=== PATIENT | female | born 1985 | race Two or more races ===

== ENCOUNTER 2018-10-03 08:09 | Day surgery (SDC) | payer MEDICAID ==
[2018-09-26 10:52] LABS: APPEARANCE,URINE CLEAR; BILIRUBIN,URINE NEGATIVE (NEGATIVE); COLOR,URINE STRAW; GLUCOSE, URINE NEGATIVE (NEGATIVE); KETONES,URINE NEGATIVE (NEGATIVE); LEUKOCYTE ESTERASE,URINE NEGATIVE (NEGATIVE); NITRITE,URINE NEGATIVE (NEGATIVE); PROTEIN,URINE NEGATIVE (NEGATIVE); URINE SPECIFIC GRAVITY 1.008; UROBILINOGEN,URINE NEGATIVE mg/dL (<2.0)
[2018-09-26 10:52] LABS: HEMOGLOBIN 15.5 g/dL (12.0-15.5); MEAN CORPUSCULAR HEMOGLOBIN 30.4 pg (27.0-33.4); MEAN CORPUSCULAR HGB CONC 34.3 g/dL (32.0-36.0); MEAN CORPUSCULAR VOLUME 89 fl (80-97); PLATELET COUNT 230 10^3/uL (150-450); RED BLOOD COUNT 5.08 10^6/uL (3.72-5.28); RED CELL DISTRIBUTION WIDTH 12.5 % (11.5-14.0); WHITE BLOOD COUNT 7.1 10^3/uL (4.0-10.5)
--- NOTE | 2018-09-26 12:19 | EKG REPORT ---
SEVERITY:- NORMAL ECG - SINUS RHYTHM : Confirmed by: Markel Dumont MD 26-Sep-2018 12:18:51
[~2018-10-03 08:09] MED LIST: LACTATED RINGERS 1000 ML IV PRN; LIDOCAINE 0.5% INJ-PF (5 MG/ML) 50 ML SDV SUBCUT PRN
[2018-10-03] MEDS ORDERED: FENTANYL CITRATE INJ/PF 100 MCG/2 ML AMPUL ONE (09:10)
[2018-10-03] MEDS ORDERED: MIDAZOLAM 2 MG/2 ML INJ ONE (09:10)
[2018-10-03] MEDS ORDERED: PROPOFOL INJ 200 MG/20 ML VIAL IV ONE (09:10)
[2018-10-03] MEDS ORDERED: DIPHENHYDRAMINE HCL 50 MG/ML VIAL IV PRN (10:05)
[2018-10-03] MEDS ORDERED: PROMETHAZINE HCL INJ 25 MG/1 ML VIAL IV PRN (10:05)
[2018-10-03] MEDS ORDERED: MORPHINE SULFATE 10 MG/ML INJ IV PRN (10:05)
[2018-10-03] MEDS ORDERED: FENTANYL CITRATE INJ/PF 100 MCG/2 ML AMPUL IV PRN ×3 (10:05)
[2018-10-03] MEDS ORDERED: MEPERIDINE HCL/PF INJ 25 MG/1 ML DISP.SYRIN IV PRN (10:05)
[2018-10-03] MEDS ORDERED: OXYCODONE-ACETAMINOPHEN 5-325 MG TABLET PO PRN ×3 (10:05→11:59)
--- NOTE | 2018-10-03 11:10 | OPERATIVE REPORT E ---
Operative Report NAME: CLAUDIA ARTEAGA : 1985 AGE: 33Y DATE OF SURGERY: 10/03/2018 ROOM: PREOPERATIVE DIAGNOSIS: CYSTOCELE, RECTOCELE, PELVIC ORGAN PROLAPSE. POSTOPERATIVE DIAGNOSIS: CYSTOCELE, RECTOCELE, PELVIC ORGAN PROLAPSE. OPERATION: Anterior and posterior repair with sacrospinous vaginal suspension. SURGEON: Neville CARBAJAL M.D. ESTIMATED BLOOD LOSS: Less than 50 mL. ANESTHESIA: General. TISSUE REMOVED OR ALTERED: None. PROCEDURE: Patient was placed in a dorsal lithotomy position and prepped and draped in usual sterile fashion. The vaginal mucosa was grasped a centimeter below the urethra and entered with sharp dissection and divided to the cervix. Underlying vesicovaginal tissue was bluntly and sharply divided. The underlying tissue was then plicated with multiple 2-0 Vicryl in the midline and excess vaginal mucosa was sharply excised and the defect closed with running suture of 2-0 Vicryl. Posterior repair was done by grasping the vaginal mucosa at the remnants of the hymenal ring, entering cross-bonilla and in midline to just below the cervix. Underlying rectovaginal tissue was then bluntly and sharply divided. The right sacrospinous nodule was identified. Using the *------* it was placed into the right sacrospinous ligament. The other end was then plicated to the apex of the vagina. Underlying rectovaginal tissue was then plicated with multiple interrupted sutures in the midline. Excess vaginal mucosa was removed. The uterus was then plicated to the sacrospinous ligament with the previously placed suture and excess vaginal mucosa and deep layer closed with running suture of 2-0 Vicryl. Hemostasis was noted. Patient tolerated it well. Urine remained clear throughout the procedure. She was taken to recovery in good condition. DICTATING PHYSICIAN: Neville CARBAJAL M.D. [id number] PHY#: [id number] ID: [id number] JOB#: [id number] ACCT: [id number] cc:Neville CARBAJAL M.D. >
[2018-10-03] MEDS: FENTANYL CITRATE INJ/PF 100 MCG/2 ML AMPUL ONE ×2 (11:11→11:16)
[2018-10-03] MEDS ORDERED: OXYCODONE-ACETAMINOPHEN 5-325 MG TABLET ONE (11:45)
[2018-10-03] MEDS ORDERED: KETOROLAC TROMETHAMINE 60 MG/2 ML SDV ONE (12:49)
[2018-10-03] MEDS ORDERED: ONDANSETRON HCL INJ/PF 4 MG/2 ML SDV ONE (12:49)
[2018-10-03] MEDS ORDERED: LIDOCAINE 2% INJ-PF (20 MG/ML) 2 ML AMPUL ONE (12:49)
[2018-10-03] MEDS ORDERED: DEXAMETHASONE SOD PHOSPHATE INJ 4 MG/1 ML VIAL ONE (12:49)
[2018-10-03 13:58] VITALS: BP 112/70
[2018-10-03] MEDS ORDERED: IBUPROFEN 800 MG TABLET PO SCH (14:00)
[2018-10-03] MEDS ORDERED: ONDANSETRON HCL 8 MG TABLET PO SCH (14:00)
== END 2018-10-03 13:00 | disposition home or self-care (01) ==
LOC: OROUT 08:09
PROVIDERS: ATTEND Obstetrics & Gynecology Gynecology
DX: N81.10 Cystocele, unspecified (principal); N81.6 Rectocele; N81.89 Other female genital prolapse
CPT/HCPCS: 93005; 36415; 85027; 81005; 81025; 93010; 00942; 57260; 57282; J2250; J1100; J1885; J3010; J2405; J2704; J3490; 942

== ENCOUNTER 2018-10-27 15:51 | Emergency (ER) | payer MEDICAID ==
--- NOTE | 2018-10-27 20:27 | ER Document Report ---
ED Medical Screen (RME) - General Chief Complaint: Vaginal Bleeding Stated Complaint: VAGINAL BLEEDING Time Seen by Provider: 10/27/18 17:39 Primary Care Provider: SHAYY WALTERS MD [Primary Care Provider] - Follow up as needed Notes: [place]aguan-speaking 33-year-old female with recent hysterectomy on October 03 presents the emergency department with abnormal vaginal bleeding. She said that she started spotting yesterday and then had heavy bleeding this morning, bleeding through 5 or 6 pads. She denies dizziness or lightheadedness, acute shortness of breath or chest pain, nausea or vomiting, abnormal foul-smelling discharge, urinary symptoms. EXAM: Well-appearing in no acute distress, lungs are clear to auscultation in all pyle, regular cardiac rate and rhythm I have greeted and performed a rapid initial assessment of this patient. A comprehensive ED assessment and evaluation of the patient, analysis of test results and completion of medical decision making process will be conducted by an additional ED providers. TRAVEL OUTSIDE OF THE [place] IN LAST 30 DAYS: No - Related Data Allergies/Adverse Reactions: No Known Allergies Allergy (Verified 10/03/18 08:19) Past Medical History - Social History Chew tobacco use (# tins/day): No Frequency of alcohol use: None Drug Abuse: None - Past Medical History Cardiac Medical History: Denies: Hx Coronary Artery Disease, Hx Heart Attack, Hx Hypertension Pulmonary Medical History: Denies: Hx Asthma, Hx Bronchitis, Hx COPD, Hx Pneumonia Neurological Medical History: Denies: Hx Cerebrovascular Accident, Hx Seizures Musculoskeltal Medical History: Denies Hx Arthritis - Immunizations Hx Diphtheria, Pertussis, Tetanus Vaccination: No Physical Exam - Vital signs Vitals: Temp Pulse Resp BP Pulse Ox 98.3 F 64 18 128/84 H 100 10/27/18 16:06 10/27/18 16:06 10/27/18 16:06 10/27/18 16:06 10/27/18 16:06 Course - Vital Signs Vital signs: Temp Pulse Resp BP Pulse Ox 98.3 F 64 18 128/84 H 100 10/27/18 16:06 10/27/18 16:06 10/27/18 16:06 10/27/18 16:06 10/27/18 16:06 Doctor's Discharge - Discharge Referrals: SHAYY WALTERS MD [Primary Care Provider] - Follow up as needed
[2018-10-27 20:50] LABS: ABSOLUTE EOSINOPHILS # (AUTO) 0.2 10^3/uL (0.0-0.6); ABSOLUTE LYMPHOCYTES (AUTO) 2.7 10^3/uL (0.5-4.7); ABSOLUTE MONOCYTES (AUTO) 0.4 10^3/uL (0.1-1.4); ABSOLUTE NEUT (AUTO) 3.5 10^3/uL (1.7-8.2); BASOPHILS % (AUTO) 0.5 % (0-2); EOSINOPHILS % (AUTO) 2.5 % (0-6); HEMATOCRIT 40.9 % (36.0-47.0); HEMOGLOBIN 14.1 g/dL (12.0-15.5); LYMPHOCYTES % (AUTO) 39.6 % (13-45); MEAN CORPUSCULAR HEMOGLOBIN 30.4 pg (27.0-33.4); MEAN CORPUSCULAR HGB CONC 34.3 g/dL (32.0-36.0); MEAN CORPUSCULAR VOLUME 89 fl (80-97); MONOCYTES % (AUTO) 6.1 % (3-13); PLATELET COUNT 242 10^3/uL (150-450); RED BLOOD COUNT 4.62 10^6/uL (3.72-5.28); RED CELL DISTRIBUTION WIDTH 12.6 % (11.5-14.0); SEGMENTED NEUTROPHILS % (AUTO) 51.3 % (42-78); TOTAL CELLS COUNTED % (AUTO) 100 %; WHITE BLOOD COUNT 6.8 10^3/uL (4.0-10.5)
[2018-10-27 21:05] LABS: APPEARANCE,URINE CLEAR; BILIRUBIN,URINE NEGATIVE (NEGATIVE); COLOR,URINE STRAW; GLUCOSE, URINE NEGATIVE (NEGATIVE); KETONES,URINE NEGATIVE (NEGATIVE); LEUKOCYTE ESTERASE,URINE NEGATIVE (NEGATIVE); NITRITE,URINE NEGATIVE (NEGATIVE); PROTEIN,URINE NEGATIVE (NEGATIVE); URINE SPECIFIC GRAVITY 1.009; UROBILINOGEN,URINE NEGATIVE mg/dL (<2.0)
[2018-10-27 21:13] LABS: ALBUMIN 4.4 g/dL (3.5-5.0); ALKALINE PHOSPHATASE 62 U/L (38-126); ANION GAP 9 (5-19); ASPARTATE AMINO TRANSFERASE 19 U/L (14-36); BILIRUBIN,DIRECT 0.2 mg/dL (0.0-0.4); BILIRUBIN,TOTAL 0.9 mg/dL (0.2-1.3); BLOOD UREA NITROGEN 12 mg/dL (7-20); CALCIUM 9.8 mg/dL (8.4-10.2); CARBON DIOXIDE 27 mmol/L (22-30); CHLORIDE 103 mmol/L (98-107); GLUCOSE 88 mg/dL (75-110); POTASSIUM 3.8 mmol/L (3.6-5.0); TOTAL PROTEIN 7.3 g/dL (6.3-8.2)
--- NOTE | 2018-10-27 22:21 | RADIOLOGY REPORT (SQ) ---
EXAM DESCRIPTION: US PELVIS TRANSVAGINAL COMPLETED DATE/TME: 10/27/2018 20:24 CLINICAL HISTORY: 33 years, Female, vaginal bleeding, recent hysterectomy 10/03 COMPARISON: None. TECHNIQUE: Axial 2-D grayscale images of the pelvis were obtained. Doppler was utilized. LIMITATIONS: None. FINDINGS: Uterus measures 7.5 x 4.5 x 5.0 cm in size. Endometrial stripe thickness measures 7 mm. A few nabothian cysts are noted about the uterine cervix. Cervix is closed, measuring 2.4 cm in length. Right ovary was not visualized. Left ovary measures 3.6 x 2.0 x 1.9 cm in size. It demonstrates normal echogenicity as well as normal low resistance arterial waveforms/venous flow. IMPRESSION: No acute sonographic abnormality. Nonvisualization of the right ovary. copyright 2010 [employer]- All Rights Reserved
--- NOTE | 2018-10-27 23:21 | ER Document Report ---
HPI - HPI Patient complains to provider of: vaginal bleeding Time Seen by Provider: 10/27/18 17:39 Pain Level: 3 - REPRODUCTIVE Reproductive: DENIES: : - DERM Skin Color: Normal Past Medical History - Social History Smoking Status: Never Smoker Chew tobacco use (# tins/day): No Frequency of alcohol use: None Drug Abuse: None Family History: Reviewed & Not Pertinent Patient has suicidal ideation: No Patient has homicidal ideation: No - Past Medical History Cardiac Medical History: Denies: Hx Coronary Artery Disease, Hx Heart Attack, Hx Hypertension Pulmonary Medical History: Denies: Hx Asthma, Hx Bronchitis, Hx COPD, Hx Pneumonia Neurological Medical History: Denies: Hx Cerebrovascular Accident, Hx Seizures Musculoskeletal Medical History: Denies Hx Arthritis Past Surgical History: Reports: Hx Hysterectomy - Immunizations Hx Diphtheria, Pertussis, Tetanus Vaccination: No Vertical Provider Document - INFECTION CONTROL TRAVEL OUTSIDE OF THE [place] IN LAST 30 DAYS: No Course - Vital Signs Vital signs: Temp Pulse Resp BP Pulse Ox 98.9 F 65 20 142/87 H 100 10/27/18 20:44 10/27/18 20:44 10/27/18 20:44 10/27/18 20:44 10/27/18 20:44 - Laboratory Result Diagrams: 10/27/18 20:40 10/27/18 20:40 Laboratory results interpreted by me: 10/27/18 20:57 Urine Blood LARGE H Discharge - Discharge Clinical Impression: Vaginal bleeding Condition: Good Disposition: HOME, SELF-CARE Instructions: Vaginal Bleeding ([facility]) Additional Instructions: Follow-up with obgyn in 1 to 2 days. Return for any worsening symptoms. tylenol or motrin as needed for any pain or fever if not allergic. take the medication as prescribed. Referrals: SHAYY WALTERS MD [Primary Care Provider] - Follow up as needed ABRAN CARBAJAL MD [ACTIVE STAFF] - Follow up as needed
[2018-10-28 01:27] VITALS: BP 113/71
== END 2018-10-28 01:27 | disposition home or self-care (01) ==
LOC: ER 15:51
DX: N93.9 Abnormal uterine and vaginal bleeding, unspecified (principal); Z90.710 Acquired absence of both cervix and uterus
CPT/HCPCS: 36415; 76830; 80053; 81001; 81025; 85025; 93976; 99284